=== PATIENT | female | born 1990 | race Two or more races ===

== ENCOUNTER 2019-01-30 22:59 | Emergency (ER) | payer MEDICAID, OTHER ==
[~2019-01-30] VITALS: Ht 152.4 cm; Wt 51.4 kg
[2019-01-31 00:59] VITALS: BP 133/89
== END 2019-01-31 02:19 | disposition home or self-care (01) ==
LOC: ED 23:48
DX: R10.11 Right upper quadrant pain (principal)
CPT/HCPCS: 36415; 74176; 76700; 80053; 81001; 81025; 83690; 85025; 87086; 99284; Q0162